=== PATIENT | female | born 1970 | race Caucasian/White ===

== ENCOUNTER 2024-11-29 07:26 | Inpatient (IN) | payer MEDICARE ==
[~2024-11-29] VITALS: Ht 165.1 cm; Wt 127.9 kg
[2024-11-29 08:45] LABS: BASO # 0.1 10^3/uL (0.0-0.2); BASO % 1.1 % (0.0-1.0); EOS # 0.2 10^3/uL (0.0-0.5); EOS % 2.6 % (0.0-3.0); LYMPH # 1.9 10^3/uL (1.5-5.0); LYMPH % 25.4 % (24.0-44.0); MONO # 0.6 10^3/uL (0.0-0.8); MONO % 7.6 % (2.0-8.0); NEUTROPHILS # 4.6 10^3/uL (1.5-8.5); NEUTROPHILS % 63.2 % (36.0-66.0); PLATELET COUNT, AUTOMATED 246 10^3/uL (150-450)
[2024-11-29] MEDS ORDERED: ISOVUE-370 76% 100 ML VIAL As Ordered ONE (08:57)
[2024-11-29 08:59] LABS: INR 0.86
[2024-11-29 09:15] LABS: CALCIUM LEVEL 9.8 MG/DL (8.5-10.1); CARBON DIOXIDE LEVEL 26 MMOL/L (20-31); CHLORIDE LEVEL 92 MMOL/L (98-107); CREATININE FOR GFR 0.73 MG/DL (0.55-1.30); GLOMERULAR FILTRATION RATE > 90.0 (>51); POTASSIUM SERUM 4.8 MMOL/L (3.5-5.1); SODIUM LEVEL 132 MMOL/L (136-145)
[2024-11-29] MEDS: NS 500 ML IV ONE (09:54)
[2024-11-29] MEDS ORDERED: HYDR-3490 PO (11:02)
[2024-11-29] MEDS ORDERED: LISI40TA10 PO (11:02)
[2024-11-29] MEDS ORDERED: MED REC IN PROGRESS XX SCH (11:05)
[2024-11-29] MEDS ORDERED: HOME MED LIST COMPLETE! XX SCH (11:45)
[2024-11-29] MEDS: HYDROMORPHONE HCL 0.5 MG/0.5 ML SYRINGE IV ONE (12:05)
[2024-11-29] MEDS: KETOROLAC 30 MG/ML 1 ML VIAL IV ONE (12:17)
[2024-11-29] MEDS: ACETAMINOPHEN *IV* 1,000 MG in IV 1 EA IV ONE (12:17)
[2024-11-29] MEDS: NS (Normal Saline) 0.9% 1,000 ML IV ONE ×2 (12:23→16:28)
[2024-11-29] MEDS: ASPIRIN 81 MG ENTERIC TABLET PO SCH (14:09)
[2024-11-29] MEDS: CLOPIDOGREL 75 MG TAB PO SCH (14:09)
[2024-11-29] MEDS: ATORVASTATIN 20 MG TAB PO ONE (14:10)
[2024-11-29] MEDS ORDERED: DEXTROSE 50% 50 ML SYRINGE IV PRN (14:15)
[2024-11-29] MEDS ORDERED: GLUCOSE 4 GM CHEW PO PRN (14:15)
[2024-11-29] MEDS ORDERED: GLUCAGON INJ 1 MG VIAL SC PRN (14:15)
[2024-11-29] MEDS: INSULIN LISPRO (NovoLOG) PER UNIT SC STA (15:05)
[2024-11-29] MEDS: LanTUS (INSULIN GLARGINE INJ) 1 UNITS/0.01 ML SC ONE (15:06)
[2024-11-29] MEDS: NS (Normal Saline) 0.9% 1,000 ML IV SCH (18:40)
[2024-11-29] MEDS: INSULIN LISPRO (NovoLOG) PER UNIT SC SCH ×3 (18:41→21:00)
[2024-11-29] MEDS: ENOXAPARIN 40 MG/0.4 ML SYRINGE (J1650 PER 10MG) SC ONE (18:42)
[2024-11-29 20:10] VITALS: BP 134/68; TEMP 97.8; O2SAT 94
[2024-11-29] MEDS: LanTUS (INSULIN GLARGINE INJ) 1 UNITS/0.01 ML SC SCH (21:38)
[2024-11-29] MEDS: ACETAMINOPHEN 500 MG TAB PO PRN (21:42)
[2024-11-30] VITALS (14 sets, daily range): BP systolic 106–171; BP diastolic 51–89; TEMP 97–98; O2SAT 81–95
[2024-11-30 04:39] LABS: ABG BASE EXCESS -14.6 (-2.0-2.0); ABG HCO3 12.5 MMOL/L (22.0-26.0); ABG O2 SATURATION 99.3 % (95.0-99.0); ABG PARTIAL PRESSURE CO2 33.6 mmHg (35.0-45.0); ABG PARTIAL PRESSURE O2 312.9 mmHg (75.0-100.0); ABG STANDARD HCO3 13.7 MMOL/L. (22.0-26.0); ABG TOTAL CO2 13.5 MMOL/L (22.0-29.0)
[2024-11-30 04:48] LABS: ABG pH (ARTERIAL) 7.189 UNITS (7.350-7.450)
[2024-11-30 04:54] LABS: BASO # 0.1 10^3/uL (0.0-0.2); BASO % 0.7 % (0.0-1.0); EOS # 0.2 10^3/uL (0.0-0.5); EOS % 1.6 % (0.0-3.0); LYMPH # 2.8 10^3/uL (1.5-5.0); LYMPH % 25.2 % (24.0-44.0); MONO # 0.6 10^3/uL (0.0-0.8); MONO % 5.6 % (2.0-8.0); NEUTROPHILS # 7.5 10^3/uL (1.5-8.5); NEUTROPHILS % 66.7 % (36.0-66.0); PLATELET COUNT, AUTOMATED 257 10^3/uL (150-450)
[2024-11-30 05:21] LABS: CHOLESTEROL LEVEL 201 MG/DL (<200); CHOLESTEROL RISK RATIO 7.73 (<5); NON-HDL-C 175.0 MG/DL; TRIGLYCERIDES LEVEL 855 MG/DL (<150)
[2024-11-30 05:23] LABS: CALCIUM LEVEL 9.0 MG/DL (8.5-10.1); CARBON DIOXIDE LEVEL 14.0 MMOL/L (20-31); CHLORIDE LEVEL 99.0 MMOL/L (98-107); CREATININE FOR GFR 0.81 MG/DL (0.55-1.30); GLOMERULAR FILTRATION RATE 86.2 (>51); MAGNESIUM LEVEL 2.2 MG/DL (1.8-2.4); POTASSIUM SERUM 4.0 MMOL/L (3.5-5.1); PROLACTIN 39.89 NG/ML; SODIUM LEVEL 137.0 MMOL/L (136-145)
[2024-11-30] MEDS: NS (Normal Saline) 0.9% 1,000 ML IV ONE ×2 (05:31→12:05)
[2024-11-30] MEDS ORDERED: INSULIN LISPRO (NovoLOG) PER UNIT SC STA (08:43)
[2024-11-30 08:44] LABS: VENOUS BASE EXCESS -1.8 (-2.0-2.0); VENOUS HCO3 23.3 MMOL/L (23.0-27.0); VENOUS O2 SATURATION 94.9 % (60.0-80.0); VENOUS PARTIAL PRESSURE CO2 41.0 mmHg (38.0-50.0); VENOUS PARTIAL PRESSURE O2 76.8 mmHg (30.0-50.0); VENOUS PH 7.372 UNITS (7.330-7.430); VENOUS STANDARD HCO3 22.9 MMOL/L; VENOUS TOTAL CO2 24.5 MMOL/L (24.0-28.0)
[2024-11-30] MEDS ORDERED: HumuLIN R (REGULAR) INSULIN (NovoLIN R) **100 U/ML** PER UNIT SC STA (08:45)
[2024-11-30] MEDS: NS (Normal Saline) 0.9% 1,000 ML IV SCH (08:45)
[2024-11-30] MEDS: ENOXAPARIN 40 MG/0.4 ML SYRINGE (J1650 PER 10MG) SC SCH (08:59)
[2024-11-30] MEDS: INSULIN LISPRO (NovoLOG) PER UNIT SC STA (09:00)
[2024-11-30 09:26] LABS: BEDSIDE GLUCOSE CONFIRMATION 347 MG/DL (LESS THAN 200); CALCIUM LEVEL 8.7 MG/DL (8.5-10.1); CARBON DIOXIDE LEVEL 25 MMOL/L (20-31); CHLORIDE LEVEL 101 MMOL/L (98-107); CREATININE FOR GFR 0.73 MG/DL (0.55-1.30); GLOMERULAR FILTRATION RATE > 90.0 (>51); POTASSIUM SERUM 4.3 MMOL/L (3.5-5.1); SODIUM LEVEL 138 MMOL/L (136-145)
[2024-11-30] MEDS: ACETAMINOPHEN 500 MG TAB PO ONE (09:35)
[2024-11-30 09:38] LABS: ABG BASE EXCESS -1.3 (-2.0-2.0); ABG HCO3 23.4 MMOL/L (22.0-26.0); ABG O2 SATURATION 94.6 % (95.0-99.0); ABG PARTIAL PRESSURE CO2 39.5 mmHg (35.0-45.0); ABG PARTIAL PRESSURE O2 76.9 mmHg (75.0-100.0); ABG STANDARD HCO3 23.3 MMOL/L. (22.0-26.0); ABG TOTAL CO2 24.6 MMOL/L (22.0-29.0); ABG pH (ARTERIAL) 7.391 UNITS (7.350-7.450)
[2024-11-30 09:50] LABS: MAGNESIUM LEVEL 2.3 MG/DL (1.8-2.4); PHOSPHORUS LEVEL 3.4 MG/DL (2.5-4.9)
[2024-11-30] MEDS ORDERED: INSULIN LISPRO (NovoLOG) PER UNIT SC ONE (11:00)
[2024-11-30] MEDS ORDERED: LEVETIRACETAM IV SCH (11:45)
[2024-11-30] MEDS ORDERED: DEXTROSE 50% 50 ML SYRINGE IV PRN (12:30)
[2024-11-30 12:48] LABS: CALCIUM LEVEL 8.8 MG/DL (8.5-10.1); CARBON DIOXIDE LEVEL 27 MMOL/L (20-31); CHLORIDE LEVEL 102 MMOL/L (98-107); CREATININE FOR GFR 0.72 MG/DL (0.55-1.30); GLOMERULAR FILTRATION RATE > 90.0 (>51); POTASSIUM SERUM 4.2 MMOL/L (3.5-5.1); SODIUM LEVEL 140 MMOL/L (136-145)
[2024-11-30 12:51] LABS: PROLACTIN 4.45 NG/ML
[2024-11-30] MEDS: levETIRAcetam INJection 750 MG in D5W 100 ML IV SCH (14:29)
[2024-11-30 18:37] LABS: CALCIUM LEVEL 8.6 MG/DL (8.5-10.1); CARBON DIOXIDE LEVEL 26 MMOL/L (20-31); CHLORIDE LEVEL 101 MMOL/L (98-107); CREATININE FOR GFR 0.63 MG/DL (0.55-1.30); GLOMERULAR FILTRATION RATE > 90.0 (>51); POTASSIUM SERUM 4.0 MMOL/L (3.5-5.1); SODIUM LEVEL 137 MMOL/L (136-145)
[2024-11-30] MEDS: ATORVASTATIN 20 MG TAB PO SCH (22:31)
[2024-12-01] VITALS (9 sets, daily range): BP systolic 103–179; BP diastolic 56–87; TEMP 97.3–99; O2SAT 81–97
[2024-12-01 00:59] LABS: CALCIUM LEVEL 8.6 MG/DL (8.5-10.1); CARBON DIOXIDE LEVEL 28 MMOL/L (20-31); CHLORIDE LEVEL 103 MMOL/L (98-107); CREATININE FOR GFR 0.71 MG/DL (0.55-1.30); GLOMERULAR FILTRATION RATE > 90.0 (>51); POTASSIUM SERUM 3.9 MMOL/L (3.5-5.1); SODIUM LEVEL 140 MMOL/L (136-145)
[2024-12-01 04:29] LABS: BASO # 0.0 10^3/uL (0.0-0.2); BASO % 0.6 % (0.0-1.0); EOS # 0.1 10^3/uL (0.0-0.5); EOS % 2.1 % (0.0-3.0); LYMPH # 1.8 10^3/uL (1.5-5.0); LYMPH % 28.1 % (24.0-44.0); MONO # 0.4 10^3/uL (0.0-0.8); MONO % 6.6 % (2.0-8.0); NEUTROPHILS # 4.1 10^3/uL (1.5-8.5); NEUTROPHILS % 62.4 % (36.0-66.0); PLATELET COUNT, AUTOMATED 175 10^3/uL (150-450)
[2024-12-01 05:16] LABS: CALCIUM LEVEL 8.5 MG/DL (8.5-10.1); CARBON DIOXIDE LEVEL 25 MMOL/L (20-31); CHLORIDE LEVEL 103 MMOL/L (98-107); CREATININE FOR GFR 0.66 MG/DL (0.55-1.30); GLOMERULAR FILTRATION RATE > 90.0 (>51); POTASSIUM SERUM 4.0 MMOL/L (3.5-5.1); SODIUM LEVEL 139 MMOL/L (136-145)
[2024-12-01] MEDS: INSULIN LISPRO (NovoLOG) PER UNIT SC SCH ×3 (08:55→21:00)
[2024-12-01] MEDS: LanTUS (INSULIN GLARGINE INJ) 1 UNITS/0.01 ML SC SCH (22:46)
[2024-12-02 03:02] VITALS: BP 108/57; TEMP 98; O2SAT 100
[2024-12-02 06:12] LABS: BASO # 0.0 10^3/uL (0.0-0.2); BASO % 0.8 % (0.0-1.0); EOS # 0.2 10^3/uL (0.0-0.5); EOS % 3.2 % (0.0-3.0); LYMPH # 1.8 10^3/uL (1.5-5.0); LYMPH % 35.7 % (24.0-44.0); MONO # 0.4 10^3/uL (0.0-0.8); MONO % 8.8 % (2.0-8.0); NEUTROPHILS # 2.6 10^3/uL (1.5-8.5); NEUTROPHILS % 51.3 % (36.0-66.0); PLATELET COUNT, AUTOMATED 175 10^3/uL (150-450)
[2024-12-02] MEDS: NS (Normal Saline) 0.9% 1,000 ML IV ONE (06:15)
[2024-12-02] MEDS ORDERED: BLOOKIT21 XX (06:25)
[2024-12-02] MEDS ORDERED: PRIL20TA2 PO (06:25)
[2024-12-02] MEDS ORDERED: INSUHUMDS SC (06:25)
[2024-12-02] MEDS ORDERED: KEPP1TAB2 PO (06:25)
[2024-12-02] MEDS ORDERED: ASPI81TAEC PO (06:25)
[2024-12-02] MEDS ORDERED: LANC30MI XX (06:25)
[2024-12-02] MEDS ORDERED: ALCOPAD25 TOP (06:25)
[2024-12-02] MEDS ORDERED: GLUC1TES2 XX (06:25)
[2024-12-02] MEDS ORDERED: ATOR-398 PO (06:25)
[2024-12-02] MEDS ORDERED: LANTINJ4 SC (06:25)
[2024-12-02] MEDS ORDERED: CLOP75TA2 PO (06:25)
[2024-12-02] MEDS ORDERED: PEN-308 SC (06:25)
[2024-12-02 06:42] LABS: CALCIUM LEVEL 8.7 MG/DL (8.5-10.1); CARBON DIOXIDE LEVEL 29 MMOL/L (20-31); CHLORIDE LEVEL 102 MMOL/L (98-107); CREATININE FOR GFR 0.67 MG/DL (0.55-1.30); GLOMERULAR FILTRATION RATE > 90.0 (>51); POTASSIUM SERUM 3.9 MMOL/L (3.5-5.1); SODIUM LEVEL 140 MMOL/L (136-145)
[2024-12-02] MEDS ORDERED: NORV5TAB PO (07:44)
[2024-12-02] MEDS ORDERED: METF500T13 PO (07:44)
[2024-12-02] MEDS ORDERED: TALK1KIT MC (07:44)
[2024-12-02 08:05] VITALS: BP 140/90; TEMP 97.6; O2SAT 96
[2024-12-02] MEDS ORDERED: HUMA100I5 SC (10:40)
== END 2024-12-02 14:37 | disposition home or self-care (01) | DRG 66 ==
LOC: M ED 07:26 → M ED INP 09:35 → M PCU 19:55
PROVIDERS: ADMIT General Practice; ATTEND General Practice
PROC: B246ZZZ Ultrasonography of Right and Left Heart (ICD-10-PCS; principal; 2024-11-30)
DX: I63.9 Cerebral infarction, unspecified (principal); E11.10 Type 2 diabetes mellitus with ketoacidosis without coma; H91.93 Unspecified hearing loss, bilateral; I10 Essential (primary) hypertension; E66.01 Morbid (severe) obesity due to excess calories; G47.33 Obstructive sleep apnea (adult) (pediatric); E86.0 Dehydration; Z79.899 Other long term (current) drug therapy; Z88.0 Allergy status to penicillin; Z88.2 Allergy status to sulfonamides; Z88.8 Allergy status to other drugs, medicaments and biological substances; Z87.891 Personal history of nicotine dependence; R13.10 Dysphagia, unspecified; I65.22 Occlusion and stenosis of left carotid artery; E78.1 Pure hyperglyceridemia; F17.210 Nicotine dependence, cigarettes, uncomplicated; R56.9 Unspecified convulsions